=== PATIENT | male | born 1975 | race American Indian/Alaskan Native ===

== ENCOUNTER 2016-11-12 18:44 | Emergency (ER) | payer OTHER ==
[2016-11-12] MEDS ORDERED: CATAPRES ONE (20:04)
[2016-11-12] MEDS ORDERED: CATAPRES PO ONE (20:05)
[2016-11-13] MEDS ORDERED: NORCO 7.5/325 PO ONE (01:21)
[2016-11-13] MEDS ORDERED: KEFLEX PO ONE (01:21)
[2016-11-13] MEDS ORDERED: BENADRYL IV ONE (01:22)
[2016-11-13] MEDS ORDERED: MORPHINE IV ONE (01:22)
[2016-11-13] MEDS ORDERED: REGLAN IV ONE (01:22)
[2016-11-13] MEDS ORDERED: NORMODYNE IV ONE (01:22)
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
[2016-11-13] MEDS ORDERED: APRESOLINE IV ONE (01:28)
[2016-11-13 02:19] VITALS: BP 165/99
== END 2016-11-13 02:21 | disposition home or self-care (01) ==
LOC: ED 18:44
DX: R51 Headache (principal); L03.115 Cellulitis of right lower limb; B35.3 Tinea pedis; I10 Essential (primary) hypertension; F17.200 Nicotine dependence, unspecified, uncomplicated; E11.9 Type 2 diabetes mellitus without complications; Z98.890 Other specified postprocedural states; Z86.73 Personal history of transient ischemic attack (TIA), and cerebral infarction without residual deficits
CPT/HCPCS: 82962; 96374; 96375; 99284; J1200; J2270; J2765